=== PATIENT | male | born 2000 | race Caucasian/White ===

== ENCOUNTER 2024-08-12 09:25 | Day surgery (SDC) | payer BC ==
[2024-08-12] MEDS ORDERED: LIDOCAINE HCL 2% 100 MG/5 ML IJ ONE (09:26)
[2024-08-12] MEDS ORDERED: propofoL IV ONE ×2 (12:00→12:09)
[2024-08-12] MEDS ORDERED: Lactated Ringers 1,000 ML IV ONE ×2 (12:35→14:35)
--- NOTE | 2024-08-12 14:33 | XRAY ---
Indication: Bilateral L3-L5 MBB. Intraoperative fluoroscopy provided for 11 seconds. 2 digital spot images submitted for interpretation demonstrates posterior needle tips projecting over expected left and right L3-L5 nerve roots. Correlate with intraoperative findings/report.
--- NOTE | 2024-08-12 14:35 | XRAY ---
11 seconds of fluoroscopy used in surgery for a bilateral L3-L5 MBB.
== END 2024-08-12 12:30 | disposition home or self-care (01) ==
LOC: SDC-PAIN 09:25
PROVIDERS: ATTEND Psychiatry & Neurology Pain Medicine
DX: M47.817 Spondylosis without myelopathy or radiculopathy, lumbosacral region (principal)
CPT/HCPCS: 64493; 64494; 72020; J2704